=== PATIENT | female | born 1975 | race African-American/Black ===

== ENCOUNTER → 2025-04-18 | Day surgery (SDC) | payer OTHER ==
[~2025-04-18] MED LIST: HYDROCHLOROTHIA25 MG PO; LACTATED RINGER'S 1,000 ML ONE; LIDOCAINE HCL 2% LOCAL INJ 5 ML SDV VIAL INJ ONE; LOSARTAN POTASS25 MG PO; MIDAZOLAM HCL 2 MG/2 ML VIAL ONE; PROPOFOL IV EMULSION 10 MG/ML 20 ML VIAL ONE
[2025-04-18 16:08] VITALS: TEMP 97
[2025-04-18 16:35] VITALS: BP 140/80; PULSE 88; RESP 15; O2SAT 97
== END | disposition home or self-care (01) ==
LOC: OR 13:53
PROVIDERS: ATTEND Internal Medicine Gastroenterology
DX: Z12.11 Encounter for screening for malignant neoplasm of colon (principal); K64.8 Other hemorrhoids; K57.30 Diverticulosis of large intestine without perforation or abscess without bleeding; Z68.41 Body mass index [BMI] 40.0-44.9, adult; I10 Essential (primary) hypertension; Z79.899 Other long term (current) drug therapy; Z79.1 Long term (current) use of non-steroidal anti-inflammatories (NSAID); Z01.810 Encounter for preprocedural cardiovascular examination; Z01.818 Encounter for other preprocedural examination
CPT/HCPCS: 45378; 81025; 93005; J2003; J2250; J2704; J7121